=== PATIENT | female | born 1950 | race Caucasian/White ===

== ENCOUNTER 2017-07-06 14:05 | Inpatient (IN) ==
--- NOTE | 2017-07-06 14:11 | Emergency Department Note ---
Disposition Clinical Impression: Chest pain, Hypokalemia Disposition: Admitted As Inpatient Condition: Good General Adult HPI - General Chief complaint: ED Chest Pain Stated complaint: chest pain Time Seen by Provider: 07/06/17 14:07 - Related Data Home Medications Medication Instructions Recorded Confirmed Apixaban [Eliquis] 5 mg PO BID 07/06/17 07/06/17 Atorvastatin Calcium [Lipitor] 80 mg PO HS 07/06/17 07/06/17 Carboxymethylcellulose Sodium 1 drop BOTH EYES TID 07/06/17 07/06/17 [Refresh Liquigel] Clopidogrel [Plavix] 75 mg PO DAILY 07/06/17 07/06/17 Cyanocobalamin (Vitamin B-12) 100 mcg PO DAILY 07/06/17 07/06/17 [Vitamin B-12] Cyclosporine [Restasis Multidose] 1 drop BOTH EYES BID 07/06/17 07/06/17 Levothyroxine [Synthroid] 100 mcg PO 0630 07/06/17 07/06/17 Metoprolol [Lopressor] 25 mg PO BID 07/06/17 07/06/17 Naproxen [Naprosyn] 500 mg PO BID 07/06/17 07/06/17 Oxybutynin [Ditropan] 5 mg PO BID 07/06/17 07/06/17 Venlafaxine XR (24 HR) [Effexor XR] 150 mg PO DAILY 07/06/17 07/06/17 amLODIPine [Norvasc] 5 mg PO DAILY 07/06/17 07/06/17 Allergies Allergy/AdvReac Type Severity Reaction Status Date / Time niacin Allergy Hives Verified 07/06/17 14:16 simvastatin Allergy Palpitation Verified 07/06/17 14:16 s Course Vital Signs Temperature 100.6 F H 07/06/17 14:07 Pulse Rate 101 07/06/17 14:07 Respiratory Rate 18 07/06/17 14:07 Blood Pressure 116/66 07/06/17 14:07 O2 Sat by Pulse Oximetry 96 07/06/17 14:07 Temperature 99.5 F 07/07/17 07:54 Pulse Rate 117 07/07/17 07:54 Respiratory Rate 16 07/07/17 07:54 Blood Pressure 134/84 07/07/17 07:54 O2 Sat by Pulse Oximetry 97 07/07/17 07:54 Oxygen Delivery Oxygen Delivery Room Air Medical Decision Making - Lab Data Result diagrams: 07/07/17 03:56 07/06/17 20:39 Lab Results 07/06/17 07/06/17 07/06/17 Range/Units 15:11 15:13 15:13 WBC 4.4 (4.3-11.1) K/mcL RBC 3.80 L (3.82-4.97) M/mcL Hgb 10.8 L (11.5-15.4) g/dL Hct 33.0 L (35.3-44.9) % MCV 86.8 (83.0-100.0) fL MCH 28.4 (28.0-33.3) pg MCHC 32.7 (31.6-35.5) g/dL RDW 13.4 (11.5-14.5) % Plt Count 123 L (140-400) K/mcL MPV 11.0 (9.4-12.4) fL Immature Gran % 0.2 (0-4) % Seg Neutrophils % 85.4 % Lymphocytes % 6.6 % Monocytes % 7.8 % Eosinophils % 0.0 % Basophils % 0.0 % Neutrophils # 3.8 (1.6-8.9) K/mcL Lymphocytes # 0.3 L (0.6-4.6) K/mcL Monocytes # 0.3 (0.0-1.3) K/mcL Eosinophils # 0.0 (0.0-0.6) K/mcL Basophils # 0.0 (0.0-0.2) K/mcL Reactive Lymphocytes Present A (Not Present) Sodium 135 L (136-145) mEq/L Potassium 2.9 L (3.5-4.5) mEq/L Chloride 101 (98-109) mEq/L Carbon Dioxide 26 (19-29) mEq/L BUN 22 H (7-20) mg/dL Creatinine 1.15 H (0.57-1.11) mg/dL Est GFR ( Amer) 57 L (> 60) Est GFR (Non-Af Amer) 47 L (> 60) BUN/Creatinine Ratio 19 (6-26) Glucose 126 H (70-99) mg/dL Calculated Osmolality 285 (280-300) Calcium 8.7 (8.6-10.8) mg/dL Total Bilirubin 1.4 H (0.2-1.2) mg/dL AST 12 (5-34) Units/L ALT 15 (0-55) Units/L Alkaline Phosphatase 41 (38-126) Units/L Troponin I 0.01 (0-0.03) ng/mL Serum Total Protein 6.9 (6.0-8.3) g/dL Albumin 3.5 (3.5-5.0) g/dL Globulin 3.4 (2.4-3.5) g/dL Albumin/Globulin Ratio 1.0 L (1.1-2.2) Attestation Statement - Attestation Attestation: I examined this patient and my medical decision-making was reviewed with the Resident Physician. I agree with the documented findings, disposition and treatment plan as described except to the extent set forth below. Face to face time provided in conjunction with the resident physician Dr. Hayes Patient arrives from the [facility]. She is complaining of chest pain as well as nausea, vomiting, diarrhea. She appears in no acute distress on exam. Prehospital EKG reviewed by me
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
[2017-07-06] MEDS ORDERED: Ondansetron 4 MG/2 ML VIAL IVP ONE (15:17)
[2017-07-06] MEDS ORDERED: *HR* HYDROmorphone (PF) 1 MG/ML SYRINGE IVP ONE (15:17)
[2017-07-06 15:19] LABS: Hemoglobin 10.8 g/dL (11.5-15.4); Immature Granulocytes % 0.2 % (0-4); Lymphocytes # 0.3 K/mcL (0.6-4.6); Lymphocytes % 6.6 %; Mean Corpuscular HGB Conc 32.7 g/dL (31.6-35.5); Mean Corpuscular Hemoglobin 28.4 pg (28.0-33.3); Mean Corpuscular Volume 86.8 fL (83.0-100.0); Monocytes # 0.3 K/mcL (0.0-1.3); Monocytes % 7.8 %; Platelet Count 123 K/mcL (140-400); Red Cell Distribution Width 13.4 % (11.5-14.5); Segmented Neutrophils % 85.4 %
[2017-07-06 15:27] LABS: Neutrophils # 3.8 K/mcL (1.6-8.9)
[2017-07-06 15:34] LABS: Albumin 3.5 g/dL (3.5-5.0); Bilirubin,Total 1.4 mg/dL (0.2-1.2); Calcium 8.7 mg/dL (8.6-10.8); Globulin 3.4 g/dL (2.4-3.5); Potassium 2.9 mEq/L (3.5-4.5); Total Protein 6.9 g/dL (6.0-8.3)
[2017-07-06 15:53] LABS: Reactive Lymphocytes Present (Not Present)
[2017-07-06] MEDS ORDERED: Aspirin 325 MG TABLET PO ONE (17:25)
[2017-07-06 21:28] LABS: Albumin 3.5 g/dL (3.5-5.0); Bilirubin,Total 1.3 mg/dL (0.2-1.2); Calcium 8.8 mg/dL (8.6-10.8); Globulin 3.4 g/dL (2.4-3.5); Potassium 3.2 mEq/L (3.5-4.5); Total Protein 6.9 g/dL (6.0-8.3)
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
[2017-07-06] MEDS ORDERED: Levofloxacin 500 MG/100 ML 500 MG/100 ML BAG IVPB ONE (22:00)
[2017-07-06] MEDS: *HR* Morphine 2 MG/ML SYRINGE IVP PRN (23:17)
[2017-07-07] MEDS ORDERED: Ondansetron 4 MG/2 ML VIAL ONE (01:56)
[2017-07-07] MEDS: Ondansetron 4 MG/2 ML VIAL IVP SCH ×4 (02:02→23:43)
[2017-07-07 03:18] LABS: Bilirubin,Urine Negative (Negative); Blood,Urine Trace (Negative); Clarity,Urine Cloudy (Clear); Color,Urine Dark Yellow (Yellow); Glucose,Urine (UA) Normal (Normal); Ketones,Urine Negative (Negative); Leukocyte Esterase,Urine Small (Negative); Nitrite,Urine Negative (Negative); PH,Urine 5.5 pH Units (5.0-8.0); Protein,Urine 30 mg/dL (Neg-Trace); Specific Gravity,Urine 1.024 (1.010-1.025); Urobilinogen,Urine Normal (Normal)
[2017-07-07 03:19] LABS: Hyaline Casts,Urine Few per lpf (None-Few); Squamous Epithelial Cell,Urine Many per lpf (None-Few)
[2017-07-07 03:28] LABS: Bacteria,Urine Moderate per hpf (None-Few); RBC,Urine 0-3 per hpf (0-3)
[2017-07-07 04:15] LABS: Hematocrit 32.2 % (35.3-44.9); Hemoglobin 10.7 g/dL (11.5-15.4); Immature Granulocytes % 0.4 % (0-4); Lymphocytes # 0.3 K/mcL (0.6-4.6); Lymphocytes % 10.1 %; Mean Corpuscular HGB Conc 33.2 g/dL (31.6-35.5); Mean Corpuscular Hemoglobin 28.9 pg (28.0-33.3); Mean Platelet Volume 11.5 fL (9.4-12.4); Monocytes # 0.2 K/mcL (0.0-1.3); Neutrophils # 2.2 K/mcL (1.6-8.9); Red Cell Distribution Width 13.3 % (11.5-14.5); Segmented Neutrophils % 80.5 %
[2017-07-07 04:18] LABS: Platelet Count 98 K/mcL (140-400)
[2017-07-07] MEDS ORDERED: 0.9 % Sodium Chloride 500 ML IVC ONE ×2 (04:32→06:43)
[2017-07-07] MEDS ORDERED: 0.9 % Sodium Chloride 1,000 ML ONE ×2 (04:37→06:13)
[2017-07-07 04:42] LABS: Large Platelets Present (Not Present); Platelet Estimate Slight Decrease (Normal); Reactive Lymphocytes Present (Not Present); Toxic Granulation Present (Not Present)
[2017-07-07] MEDS ORDERED: 0.9 % Sodium Chloride 1,000 ML IVC ONE (05:00)
[2017-07-07] MEDS: *HR* Morphine 2 MG/ML SYRINGE IVP PRN ×2 (05:11→08:58)
[2017-07-07] MEDS ORDERED: *HR* Metoprolol 5 MG/5 ML VIAL IVP ONE (08:06)
[2017-07-07] MEDS: APIXABAN 5 MG TABLET PO SCH ×2 (08:56→21:27)
[2017-07-07] MEDS: amLODIPine 5 MG TABLET PO SCH (08:56)
[2017-07-07] MEDS: Venlafaxine XR (24 HR) 150 MG CAP.ER.24H PO SCH (08:56)
[2017-07-07] MEDS: MetroNIDAZOLE 500 MG/100 ML 500 MG/100 ML BAG IVPB SCH ×3 (08:57→23:43)
[2017-07-07] MEDS: Cyclosporine OP SCH ×2 (09:04→21:26)
[2017-07-07] MEDS: CYANOCOBALAMIN 100 MCG PO SCH (09:04)
[2017-07-07] MEDS: Artificial Tears SOLN 15 ML BOTTLE BOTH EYES SCH ×3 (09:27→21:26)
[2017-07-07 12:18] LABS: Acinetobacter baumannii by PCR Not Detected (Not Detect); Candida albicans by PCR Not Detected (Not Detect); Candida glabrata by PCR Not Detected (Not Detect); Candida krusei by PCR Not Detected (Not Detect); Candida parapsilosis by PCR Not Detected (Not Detect); Candida tropicalis by PCR Not Detected (Not Detect); Enterococcus by PCR Not Detected (Not Detect); Escherichia coli by PCR Not Detected (Not Detect); Klebsiella oxytoca by PCR Not Detected (Not Detect); Klebsiella pneumoniae by PCR Not Detected (Not Detect); Pseudomonas aeruginosa by PCR Not Detected (Not Detect); Serratia marcescens by PCR Not Detected (Not Detect); Staphylococcus aureus by PCR Not Detected (Not Detect); Streptococcus agalactiae(B)PCR Not Detected (Not Detect); Streptococcus by PCR Not Detected (Not Detect); Streptococcus pneumoniae PCR Not Detected (Not Detect); Streptococcus pyogenes (A) PCR Not Detected (Not Detect); blaKPC Carbapenem-Resist Gene Not Detected (Not Detect); mecA Methicillin-Resist Gene Not Detected (Not Detect); vanA/B Vancomycin-Resist Genes Not Detected (Not Detect)
--- NOTE | 2017-07-07 13:06 | Internal Med Progress Note ---
Date of Encounter: 07/07/17 Time of Encounter: 08:50 - Assessment and plan (1) Gram-negative bacteremia Current Visit: Yes Status: Acute Assessment and plan: 2 sets of blood cultures positive for gram-negative rods. Continue IV antibiotics. We will await final culture results. Repeat blood cultures tomorrow morning. Check lactic acid level. (2) Ileitis Current Visit: Yes Status: Acute Assessment and plan: Patient with acute abdominal pain. Also having gram-negative bacteremia. Possible infectious gastroenteritis/ileitis. On IV antibiotics. Keep nothing by mouth. IV fluids. Monitor vital signs closely. Monitor urine output closely. Checking stool studies. (3) Abdominal pain Current Visit: Yes Status: Acute Assessment and plan: Due to ileitis. Treat symptomatically. High risk for complications due to use of intravenous narcotic medications and gram-negative bacteremia. Qualifiers: Abdominal location: generalized Qualified Code(s): R10.84 - Generalized abdominal pain (4) Atrial fibrillation Current Visit: Yes Status: Acute Assessment and plan: A. fib with RVR. Patient received one dose of intravenous metoprolol with improvement in heart rate. Increase metoprolol dosage to 50 mg twice daily. On anticoagulation with Eliquis. Continue to monitor heart rate. Qualifiers: Atrial fibrillation type: paroxysmal Qualified Code(s): I48.0 - Paroxysmal atrial fibrillation - Subjective Interval history: Patient continues to have significant nausea vomiting and abdominal pain. Also had an episode of diarrhea earlier this morning. Denies any fever or chills. Does have palpitations. No chest pain. No shortness of breath. - Constitutional Vitals: Temp Pulse Resp BP Pulse Ox 98.3 F 110 16 95/66 93 07/07/17 10:55 07/07/17 10:55 07/07/17 10:55 07/07/17 10:55 07/07/17 10:55 General appearance: Present: cooperative, A&O X 2, mild distress, answers questions appropriately - Respiratory Respiratory exam: Present: CTAB. Absent: accessory muscle use, rales, rhonchi, wheezes - Cardiovascular Cardiovascular exam: Present: irregular rhythm, +S1, +S2, tachycardia. Absent: diastolic murmur, gallop, rubs, systolic murmur - GI/Abdominal GI/Abdominal exam: Present: normal bowel sounds, soft, tenderness (Generalized) , no peritoneal signs. Absent: distended - Extremities Exam Extremities exam: Present: warm, radial pulses palpable and symmetrical. Absent : calf tenderness, cyanotic, pedal edema - Neurological Exam Neurological exam: Present: CN II-XII intact, oriented X3, no focal deficits. Absent: pronater drift, facial droop, speech deficit - Skin Skin exam: Present: dry, intact Internal Medicine: Result - Labs CBC & Chem 7: 07/07/17 03:56 07/06/17 20:39 Labs: Short CBC 07/07/17 Range/Units 03:56 WBC 2.7 L (4.3-11.1) K/mcL Hgb 10.7 L (11.5-15.4) g/dL Hct 32.2 L (35.3-44.9) % Plt Count 98 L (140-400) K/mcL Neutrophils # 2.2 (1.6-8.9) K/mcL BMP 07/06/17 20:39 Sodium 134 L Potassium 3.2 L Chloride 101 Carbon Dioxide 20 BUN 24 H Creatinine 1.15 H Glucose 124 H Calcium 8.8 Liver Function 07/06/17 Range/Units 20:39 Total Bilirubin 1.3 H (0.2-1.2) mg/dL AST 16 (5-34) Units/L ALT 15 (0-55) Units/L Alkaline Phosphatase 37 L (38-126) Units/L Albumin 3.5 (3.5-5.0) g/dL Urine 07/07/17 Range/Units 03:02 Urine Color Dark Yellow (Yellow) Urine Clarity Cloudy A (Clear) Urine pH 5.5 (5.0-8.0) pH Units Ur Specific [place] 1.024 (1.010-1.025) Urine Protein 30 H (Neg-Trace) mg/dL Urine Glucose (UA) Normal (Normal) mg/dL - Impressions Impressions Abdomen/Pelvis CT 07/06/17 21:19 IMPRESSION: 1. Limited study due to lack of IV contrast. 2. There is significant wall thickening and inflammation involving the distal ileum, including the terminal ileum with mild wall thickening of the adjacent cecum. There is small amount of surrounding interloop bowel fluid. Overall findings are nonspecific and could represent an infectious or inflammatory ileitis/terminal ileitis. 3. Fluid material is noted throughout the colon, suggestive of underlying diarrheal disease. 4. 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 Follow-up as below. 5. 6 mm right lower lobe lung nodule. 6. Slightly hydropic gallbladder. RECOMMENDATIONS: Managing Abdominal Aortic Aneurysms 2.6-2.9 cm: Every 5 years* 3.0-3.4 cm: Every 3 years. 3.5-3.9 cm: Every 1 year. 4.0-4.4 cm: Every 1 year. Recommend vascular consultation. 4.5-5.4 cm: Every 6 months. Recommend vascular consultation. Greater than or equal to 5.5 cm: Referral to vascular surgeon. *For abdominal aortas with maximum diameter of 2.6-2.9 cm meeting criteria for AAA (>50% of proximal normal segment). Reference: J Vasc Surg. 2009 Jul;50(4 Suppl):S2-49 Fleischner Society guidelines for follow-up and management of incidentally detected pulmonary nodules: Single Solid Nodule: Nodule size less than 6 mm In a low-risk patient, no routine follow-up. In a high-risk patient, optional CT at 12 months. Nodule size equals 6-8 mm In a low-risk patient, CT at 6-12 months, then consider CT at 18-24 months. In a high-risk patient, CT at 6-12 months, then CT at 18-24 months. Nodule size greater than 8 mm In a low-risk patient, consider CT, PET/CT, or tissue sampling at 3 months. In a high-risk patient, consider CT, PET/CT, or tissue sampling at 3 months. Multiple Solid Nodules: Nodule size less than 6 mm In a low-risk patient, no routine follow-up. In a high-risk patient, optional CT at 12 months. Nodule size equals 6-8 mm In a low-risk patient, CT at 3-6 months, then consider CT at 18-24 months. In a high-risk patient, CT at 3-6 months, then CT at 18-24 months. Nodule size greater than 8 mm In a low-risk patient, CT at 3-6 months, then consider CT at 18-24 months. In a high-risk patient, CT at 3-6 months, then CT at 18-24 months. - Low risk patients include individuals with minimal or absent history of smoking and other known risk factors. - High risk patients include individuals with a history or smoking or known risk factors. Radiology 2017 http://pubs.rsna.org/doi/full/10.1148/radiol.6683608552 D/ / 07/07/2017 07:12:12 Eleuterio Soni MD / [email or web address] Interpreting Provider: Eleuterio Soni MD - VTE Reasons for not Prescribing Prophylaxis: Not indicated-Anticoagulated or INR therapeutic Consult Discharge Plan - Plan Referrals: Antionette Sarmiento MD [Primary Care Provider] -
[2017-07-07] MEDS: 0.9 % Sodium Chloride w KCl 20 MEQ/1,000 ML MLS IVC SCH (14:02)
[2017-07-07] MEDS ORDERED: *HR* Metoprolol 5 MG/5 ML VIAL IVP PRN (14:04)
[2017-07-07 17:45] LABS: C.difficile Toxin A/B by PCR Not detected (Not detect); Campylobacter by PCR Not detected (Not detect); Plesiomonas shigelloides PCR Not detected (Not detect)
[2017-07-07 17:47] LABS: Cryptosporidium by PCR Not detected (Not detect); E. coli O157 by PCR Not detected (Not detect); Enteroaggregative E.coli(EAEC) Not detected (Not detect); Enteropathogenic E.coli(EPEC) Not detected (Not detect); Enterotoxigenic E.coli (ETEC) Not detected (Not detect); Salmonella PCR ***DETECTED*** (Not detect); Shig/EnteroinvasiveE coli EIEC Not detected (Not detect); Shigalike tox-prod E coli STEC Not detected (Not detect); Vibrio PCR Not detected (Not detect); Vibrio cholerae PCR Not detected (Not detect); Yersinia enterocolitica PCR Not detected (Not detect)
[2017-07-07 17:48] LABS: Adenovirus F 40/41 PCR Not detected (Not detect); Astrovirus PCR Not detected (Not detect); Cyclospora cayetanensis PCR Not detected (Not detect); Entamoeba histolytica PCR Not detected (Not detect); Giardia lamblia PCR Not detected (Not detect); Norovirus GI/GII PCR Not detected (Not detect); Rotavirus A PCR Not detected (Not detect); Sapovirus PCR Not detected (Not detect)
[2017-07-07] MEDS ORDERED: Levofloxacin 250 MG/50 ML 250 MG/50 ML BAG IVPB SCH (22:00)
[2017-07-08] MEDS: traZODone 50 MG TABLET PO SCH ×2 (00:18→21:46)
[2017-07-08] MEDS: 0.9 % Sodium Chloride w KCl 20 MEQ/1,000 ML MLS IVC SCH (04:04)
[2017-07-08 04:42] LABS: Basophils % 0.5 %; Immature Granulocytes % 0.5 % (0-4); Mean Platelet Volume 11.7 fL (9.4-12.4); Red Cell Distribution Width 13.4 % (11.5-14.5)
[2017-07-08 04:43] LABS: Eosinophils % 0.9 %; Hematocrit 26.6 % (35.3-44.9); Hemoglobin 8.5 g/dL (11.5-15.4); Immature Platelets 9.4 % (1.1-6.1); Lymphocytes # 0.3 K/mcL (0.6-4.6); Lymphocytes % 14.4 %; Mean Corpuscular Hemoglobin 28.2 pg (28.0-33.3); Mean Corpuscular Volume 88.4 fL (83.0-100.0); Monocytes # 0.2 K/mcL (0.0-1.3); Monocytes % 8.8 %; Neutrophils # 1.7 K/mcL (1.6-8.9); Red Blood Count 3.01 M/mcL (3.82-4.97); Segmented Neutrophils % 74.9 %
[2017-07-08 04:45] LABS: Platelet Count 83 K/mcL (140-400)
[2017-07-08 04:55] LABS: BUN/Creatinine Ratio 21 (6-26); Blood Urea Nitrogen 18 mg/dL (7-20); Calcium 8.4 mg/dL (8.6-10.8); Carbon Dioxide 24 mEq/L (19-29); Chloride 110 mEq/L (98-109); Glucose 87 mg/dL (70-99); Osmolality,Calculated 289 (280-300); Sodium 139 mEq/L (136-145); eGFR For African Americans > 60 (> 60); eGFR For Non-African Americans > 60 (> 60)
[2017-07-08 05:06] LABS: Large Platelets Present (Not Present); Platelet Estimate Decreased (Normal)
[2017-07-08] MEDS: Ondansetron 4 MG/2 ML VIAL IVP SCH ×3 (06:23→16:41)
--- NOTE | 2017-07-08 08:13 | Electrocardiograph Report ---
[address] [place] [address] Test Date: 2017-07-06 Pat Name: Estella Cain Department: 103 Room: 3B38 Gender: F Expense Clerk: [facility] : 1950 Requested By: Julio Varma Order Number: [id number] Reading MD: James Kim MD Measurements Intervals [place] Rate: 90 P: 158 [place]: 174 QRS: -24 QRSD: 84 T: 216 QT: 350 QTc: 398 Interpretive Statements SINUS RHYTHM INFERIOR MYOCARDIAL INFARCTION, OF INDETERMINATE AGE CONSIDER ANTEROLATERAL ISCHEMIA BASELINE ARTIFACT COMPLICATES ACCURATE INTERPRETATION Electronically Signed On 07-08-2017 8:12:17 EDT by James Kim MD
--- NOTE | 2017-07-08 09:06 | Electrocardiograph Report ---
[address] [place] [address] Test Date: 2017-07-07 Pat Name: Estella Cain Department: 113 Room: 3B Gender: F Line Walker: ISI : 1950 Requested By: Julio Varma Order Number: [id number] Reading MD: James Kim MD Measurements Intervals [place] Rate: 155 P: [place]: 0 QRS: 0 QRSD: 87 T: 206 QT: 250 QTc: 337 Interpretive Statements ATRIAL FIBRILLATION WITH RAPID VENTRICULAR RESPONSE LATERAL ISCHEMIA Electronically Signed On 07-08-2017 9:04:56 EDT by James Kim MD
[2017-07-08] MEDS: Venlafaxine XR (24 HR) 150 MG CAP.ER.24H PO SCH (09:47)
[2017-07-08] MEDS: amLODIPine 5 MG TABLET PO SCH (09:47)
[2017-07-08] MEDS: APIXABAN 5 MG TABLET PO SCH ×2 (09:47→21:46)
[2017-07-08] MEDS: MetroNIDAZOLE 500 MG/100 ML 500 MG/100 ML BAG IVPB SCH (09:47)
[2017-07-08] MEDS: CYANOCOBALAMIN 100 MCG PO SCH (09:48)
[2017-07-08] MEDS: Cyclosporine OP SCH ×2 (09:48→21:54)
[2017-07-08] MEDS: Artificial Tears SOLN 15 ML BOTTLE BOTH EYES SCH ×3 (09:48→21:44)
--- NOTE | 2017-07-08 15:56 | Internal Med Progress Note ---
Date of Encounter: 07/08/17 Time of Encounter: 08:50 - Assessment and plan (1) Gram-negative bacteremia Current Visit: Yes Status: Acute Assessment and plan: Most likely Salmonella. Will change antibiotic to ciprofloxacin 400 mg IV twice daily. Repeat cultures have been sent. Will follow. Stop Flagyl. (2) Ileitis Current Visit: Yes Status: Acute Assessment and plan: Stool positive for salmonella. Most likely typhoid. Treating with ciprofloxacin. Symptoms are improving. (3) Abdominal pain Current Visit: Yes Status: Acute Assessment and plan: From ileitis/typhoid. Continue antibiotics. Symptomatic care. Qualifiers: Abdominal location: generalized Qualified Code(s): R10.84 - Generalized abdominal pain (4) Atrial fibrillation Current Visit: Yes Status: Acute Assessment and plan: Heart rate has improved and is now rate controlled. Continue current dosage of metoprolol. Continue anticoagulation with Eliquis. Qualifiers: Atrial fibrillation type: paroxysmal Qualified Code(s): I48.0 - Paroxysmal atrial fibrillation - Subjective Interval history: Patient is feeling better today. Her abdominal pain is improving. She is tolerating clear liquid diet. She has not had any diarrhea today. Denies any hematemesis or melena. Nausea and vomiting have improved. - Constitutional Vitals: Temp Pulse Resp BP Pulse Ox 98.8 F 79 18 107/60 96 07/08/17 15:13 07/08/17 15:13 07/08/17 15:13 07/08/17 15:13 07/08/17 15:13 General appearance: Present: cooperative, A&O X 2, mild distress, answers questions appropriately - Respiratory Respiratory exam: Present: CTAB. Absent: accessory muscle use, rales, rhonchi, wheezes - Cardiovascular Cardiovascular exam: Present: RRR, +S1, +S2. Absent: diastolic murmur, gallop, rubs, systolic murmur - GI/Abdominal GI/Abdominal exam: Present: normal bowel sounds, soft, no peritoneal signs. Absent: distended, tenderness - Extremities Exam Extremities exam: Present: warm, radial pulses palpable and symmetrical. Absent : calf tenderness, cyanotic, pedal edema - Neurological Exam Neurological exam: Present: alert, oriented X3, no focal deficits. Absent: facial droop, speech deficit Internal Medicine: Result - Labs CBC & Chem 7: 07/08/17 03:51 07/08/17 03:51 Labs: Short CBC 07/08/17 Range/Units 03:51 WBC 2.2 L (4.3-11.1) K/mcL Hgb 8.5 L D (11.5-15.4) g/dL Hct 26.6 L (35.3-44.9) % Plt Count 83 L (140-400) K/mcL Neutrophils # 1.7 (1.6-8.9) K/mcL BMP 07/08/17 03:51 Sodium 139 Potassium 4.0 Chloride 110 H Carbon Dioxide 24 BUN 18 Creatinine 0.85 Glucose 87 Calcium 8.4 L - Impressions Impressions Abdomen/Pelvis CT 07/06/17 21:19 IMPRESSION: 1. Limited study due to lack of IV contrast. 2. There is significant wall thickening and inflammation involving the distal ileum, including the terminal ileum with mild wall thickening of the adjacent cecum. There is small amount of surrounding interloop bowel fluid. Overall findings are nonspecific and could represent an infectious or inflammatory ileitis/terminal ileitis. 3. Fluid material is noted throughout the colon, suggestive of underlying diarrheal disease. 4. 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 Follow-up as below. 5. 6 mm right lower lobe lung nodule. 6. Slightly hydropic gallbladder. RECOMMENDATIONS: Managing Abdominal Aortic Aneurysms 2.6-2.9 cm: Every 5 years* 3.0-3.4 cm: Every 3 years. 3.5-3.9 cm: Every 1 year. 4.0-4.4 cm: Every 1 year. Recommend vascular consultation. 4.5-5.4 cm: Every 6 months. Recommend vascular consultation. Greater than or equal to 5.5 cm: Referral to vascular surgeon. *For abdominal aortas with maximum diameter of 2.6-2.9 cm meeting criteria for AAA (>50% of proximal normal segment). Reference: J Vasc Surg. 2009 Jul;50(4 Suppl):S2-49 Fleischner Society guidelines for follow-up and management of incidentally detected pulmonary nodules: Single Solid Nodule: Nodule size less than 6 mm In a low-risk patient, no routine follow-up. In a high-risk patient, optional CT at 12 months. Nodule size equals 6-8 mm In a low-risk patient, CT at 6-12 months, then consider CT at 18-24 months. In a high-risk patient, CT at 6-12 months, then CT at 18-24 months. Nodule size greater than 8 mm In a low-risk patient, consider CT, PET/CT, or tissue sampling at 3 months. In a high-risk patient, consider CT, PET/CT, or tissue sampling at 3 months. Multiple Solid Nodules: Nodule size less than 6 mm In a low-risk patient, no routine follow-up. In a high-risk patient, optional CT at 12 months. Nodule size equals 6-8 mm In a low-risk patient, CT at 3-6 months, then consider CT at 18-24 months. In a high-risk patient, CT at 3-6 months, then CT at 18-24 months. Nodule size greater than 8 mm In a low-risk patient, CT at 3-6 months, then consider CT at 18-24 months. In a high-risk patient, CT at 3-6 months, then CT at 18-24 months. - Low risk patients include individuals with minimal or absent history of smoking and other known risk factors. - High risk patients include individuals with a history or smoking or known risk factors. Radiology 2017 http://pubs.rsna.org/doi/full/10.1148/radiol.7936135589 D/ / 07/07/2017 07:12:12 Eleuterio Soni MD / [email or web address] Interpreting Provider: Eleuterio Soni MD - VTE Reasons for not Prescribing Prophylaxis: Not indicated-Anticoagulated or INR therapeutic Consult Discharge Plan - Plan Referrals: Antionette Sarmiento MD [Primary Care Provider] -
[2017-07-08] MEDS: *HR* Morphine 2 MG/ML SYRINGE IVP PRN (16:40)
[2017-07-09] MEDS: Ondansetron 4 MG/2 ML VIAL IVP SCH ×2 (00:37→05:36)
[2017-07-09 07:39] VITALS: BP 113/75
[2017-07-09] MEDS: APIXABAN 5 MG TABLET PO SCH (08:13)
[2017-07-09] MEDS: amLODIPine 5 MG TABLET PO SCH (08:13)
[2017-07-09] MEDS: Venlafaxine XR (24 HR) 150 MG CAP.ER.24H PO SCH (08:13)
[2017-07-09] MEDS: Artificial Tears SOLN 15 ML BOTTLE BOTH EYES SCH (08:24)
[2017-07-09] MEDS: CYANOCOBALAMIN 100 MCG PO SCH (08:25)
[2017-07-09] MEDS: Cyclosporine OP SCH (08:25)
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
[2017-07-09 09:23] LABS: % Iron Saturation 17 % (15-50); Iron 37 mcg/dL (50-170); Transferrin 156 mg/dL (180-382)
[2017-07-09 09:43] LABS: Ferritin 945 ng/ml (5-204)
[2017-07-09 10:10] LABS: Folate 10.5 ng/mL (7.0-31.4)
== END 2017-07-09 13:15 | disposition home or self-care (01) | DRG 372 ==
LOC: EMEROO 14:05 → SUATTDRO 17:47 → 3BNU 17:47
PROVIDERS: ADMIT Hospitalist; ATTEND Internal Medicine